=== PATIENT | male | born 1960 | race African-American/Black ===

== ENCOUNTER 2017-07-12 12:28 | Emergency (ER) | payer MEDICARE, MEDICAID ==
[2017-07-12 13:21] LABS: Hematocrit 39.6 % (42.0-52.0); Mean Platelet Volume 6.2 fL (7.4-10.4); Red Blood Cell (RBC) Count 3.86 mill/uL (4.70-6.10); White Blood Cell (WBC) Count 8.9 thou/uL (4.8-10.8)
[2017-07-12 13:40] LABS: Neutrophil 61 % (42-75)
[2017-07-12 13:52] LABS: Lactic Acid - Sepsis 1.7 mmol/L (0.5-2.2)
[2017-07-12 13:57] LABS: ALT (SGPT) 14 U/L (8-55); AST (SGOT) 31 U/L (5-34); Alkaline Phosphatase 72 U/L (40-150); Anion Gap 16 mmol/L (10-20); BUN (Urea Nitrogen) 15 mg/dL (8.4-25.7); Bilirubin, Total 0.8 mg/dL (0.2-1.2); Calc. Creatinine Clearance 0 mL/min (70-130); Calcium 9.9 mg/dL (7.8-10.44); Carbon Dioxide 30 mmol/L (22-29); Chloride 89 mmol/L (98-107); Estimated GFR-MDRD 75; Globulin 4.5 g/dL (2.4-3.5); Protein, Total 8.3 g/dL (6.0-8.3)
--- NOTE | 2017-07-12 14:02 | RAD ---
PORTABLE CHEST: Date: 07/12/17 HISTORY: Cough. COMPARISON: 02/19/17. FINDINGS: There is evidence of patchy infiltrate in the left mid lung peripheral to the hilum when compared to the prior study. Subtle pneumonia would be suspected. Recommend follow-up with PA and lateral views of chest after treatment. IMPRESSION: Evidence of patchy infiltrate in the left mid lung. Follow-up recommended with PA and lateral views. POS: LIZZETTE
[2017-07-12 14:11] LABS: Bilirubin Moderate (Negative); Blood, Urine Negative (Negative); Glucose, Urine (Dipstick) Negative (Negative); Ketone, Urine Trace mg/dL (Negative); Nitrite Negative (Negative); Protein, Urine (Dipstick) 30 mg/dL (Neg-Trace)
[2017-07-12] MEDS ORDERED: Potassium Chloride 20 MEQ TAB ONE (14:26)
[2017-07-12 14:30] LABS: RBC/HPF None Seen HPF (0-3); Squamous Epithelial 0-3 HPF (0-3); WBC/HPF 0-3 HPF (0-3)
[2017-07-12 14:31] LABS: Bacteria/HPF 2+ HPF (None Seen); Hyaline Casts/LPF 4-6 HYALINE CAST LPF (0-3 Hyaline)
[2017-07-12] MEDS ORDERED: Azithromycin 500 MG VIAL ONE (15:01)
[2017-07-12] MEDS ORDERED: cefTRIAXone\\ROCEPHIN 2 GM VIAL ONE (15:01)
== END 2017-07-12 16:52 | disposition home or self-care (01) ==
LOC: ERS 12:28
DX: J18.9 Pneumonia, unspecified organism (principal); I10 Essential (primary) hypertension; E78.5 Hyperlipidemia, unspecified; Z87.891 Personal history of nicotine dependence; Z79.899 Other long term (current) drug therapy
CPT/HCPCS: 71010; 80053; 81003; 81015; 83605; 85025; 87040; 87086; 93005; 96361; 96365; 96367; J0456; J0696

== ENCOUNTER 2017-07-17 21:01 | Emergency (ER) | payer MEDICARE, MEDICAID ==
[2017-07-17 21:52] LABS: #Basophils 0.1 thou/uL (0.0-0.2); #Eosinphils 0.1 thou/uL (0.0-0.7); #Monocytes 0.8 thou/uL (0.11-0.59); #Neutrophils 3.2 thou/uL (1.40-6.50); %Basophils 0.9 % (0.0-1.0); %Monocytes 12.8 % (0.0-10.0); Hematocrit 32.3 % (42.0-52.0); Mean Platelet Volume 5.2 fL (7.4-10.4); Red Blood Cell (RBC) Count 3.15 mill/uL (4.70-6.10)
[2017-07-17 22:13] LABS: ALT (SGPT) 9 U/L (8-55); AST (SGOT) 16 U/L (5-34); Alkaline Phosphatase 59 U/L (40-150); Anion Gap 11 mmol/L (10-20); BUN (Urea Nitrogen) 8 mg/dL (8.4-25.7); Bilirubin, Total 0.3 mg/dL (0.2-1.2); Calc. Creatinine Clearance 0 mL/min (70-130); Calcium 8.5 mg/dL (7.8-10.44); Carbon Dioxide 31 mmol/L (22-29); Chloride 97 mmol/L (98-107); Estimated GFR-MDRD Greater than 90; Globulin 3.7 g/dL (2.4-3.5); Lipase 34 U/L (8-78); Magnesium 1.1 mg/dL (1.6-2.6)
[2017-07-17] MEDS ORDERED: Dicyclomine 20 MG TAB ONE (23:23)
[2017-07-17] MEDS ORDERED: Potassium Chloride 20 MEQ TAB ONE (23:42)
[2017-07-17] MEDS ORDERED: Magnesium 2 GM/NS 0.9% 50 ML 2 GM in Premix Bag 1 BAG IVPB SCH (23:45)
--- NOTE | 2017-07-17 23:53 | RAD ---
KUB AND UPRIGHT: History: Abdominal pain. History of pneumonia. Comparison: 07-12-17 x-ray FINDINGS: Bowel gas pattern is nonobstructed. No free air is seen. No radiopaque calculi. There are arthritic changes of the spine. PA CHEST: Heart size is within normal limits. There is some persistent left midlung infiltrate. It may be mini nnamdi improved as compared to the prior exam. IMPRESSION: Left midlung field infiltrate. POS: LIZZETTE
== END 2017-07-18 01:15 | disposition home or self-care (01) ==
LOC: ERS 21:01
DX: E87.6 Hypokalemia (principal); E83.42 Hypomagnesemia; R10.84 Generalized abdominal pain; E78.5 Hyperlipidemia, unspecified; I10 Essential (primary) hypertension; Z87.891 Personal history of nicotine dependence
CPT/HCPCS: 74022; 80053; 83690; 83735; 85025; 96361; 96365; 96368; J3475

== ENCOUNTER 2017-09-24 10:27 | Emergency (ER) | payer MEDICARE, MEDICAID ==
[2017-09-24] MEDS ORDERED: Vecuronium 10 MG VIAL ONE (10:30)
[2017-09-24] MEDS ORDERED: Sterile Water 10 ML ONE (10:30)
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
[2017-09-24] MEDS ORDERED: EPINEPHrine 1 MG/10 ML Abboject SYRINGE ONE (19:00)
[2017-09-24] MEDS ORDERED: Sodium Bicarb 50 MEQ/50 ML Abboject 8.4% SYRINGE ONE (19:00)
[2017-09-24] MEDS ORDERED: Calcium Chloride 1 GM/10 ML Abboject SYRINGE ONE (19:00)
== END 2017-09-24 10:40 | disposition expired ==
LOC: ERS 10:27
DX: I46.9 Cardiac arrest, cause unspecified (principal); S01.511A Laceration without foreign body of lip, initial encounter; E78.5 Hyperlipidemia, unspecified; I10 Essential (primary) hypertension; Z87.891 Personal history of nicotine dependence; V43.52XA Car driver injured in collision with other type car in traffic accident, initial encounter
CPT/HCPCS: 31500; 92950; 96374; 96375; A4216; G0390; J0171